=== PATIENT | female | born 1965 | race Caucasian/White ===

== ENCOUNTER 2016-10-17 23:36 | Emergency (ER) | payer MEDICARE ==
[~2016-10-17 23:36] MED LIST: ACET500CAP PO; HARD NAILS PO; IRON PO; KAPIDEX60 MG PO; LOTREL1 CA4 PO; MEP50TAB PO; METHOC500B PO; METHOC750B PO; MULTIVIT/MIN PO; NEUR100 PO; NEXIUM40 PO; OXYCON40 PO; OXYCONTIN15 MG PO; OXYCONTIN30 MG PO; PEPCID40 MG; PHENERGAN; PHENTERMINE30 MG PO; PHENTERMINE37.5 MG OR; PR25 PO; ROXICODONE15 MG PO; TEKTURNA HCT1 TA3 PO; TOPAMAX100 PO; TOPAMAX200 MG PO; VALIUM10 MG PO; VITAMIN B-122500 MCG SL; VITAMIN D PO; ZIAC5 PO; [UNRECOGNIZED DRUG - OTHER] PO; [UNRECOGNIZED DRUG - OTHER] PO; [UNRECOGNIZED DRUG - REMARK]
== END 2016-10-17 23:40 | disposition home or self-care (01) ==
LOC: ER 23:36
PROC: 2W3LX1Z Immobilization of Right Lower Extremity using Splint (ICD-10-PCS; principal; 2016-10-17)
DX: S89.91XA Unspecified injury of right lower leg, initial encounter (principal); Z88.5 Allergy status to narcotic agent; Z79.899 Other long term (current) drug therapy; W19.XXXA Unspecified fall, initial encounter
CPT/HCPCS: 73560-RT; 96372; 99284; J1170